=== PATIENT | male | born 1975 | race African-American/Black ===

== ENCOUNTER 2017-07-25 03:01 | Emergency (ER) | payer BC, OTHER ==
[2017-07-25] MEDS ORDERED: ALBUTEROL SO4 2.5/IPRATROPIUM 0.5 INH SOL 3 ML VIAL.NEB. NEB ONE (03:53)
--- NOTE | 2017-07-25 03:53 | PDOC ---
History of Present Illness - General History Source: Patient <Fabrice Farrell - Last Filed: 07/25/17 04:43> - General History Source: Patient Exam Limitations: No Limitations - History of Present Illness Initial Comments: 07/25/17 05:32 The patient is a 41 year old male, with a significant past medical history of Asthma who presents to the emergency department with nonproductive cough for the past 2-3 days. Patient reports worsening cough, wheezing, and shortness of breath. Patient reports associated post-tussive headaches which is unusual for him,he has no headache when he is not coughing. Patient was advised use albuterol pump by PCP however is not sure if it is helping and reports to the ED for further evaluation. Patient denies chest pain, palpitations, diaphoresis, headache or dizziness. Patient denies fever, chills, abdominal pain, nausea, vomit, diarrhea or constipation. Patient denies dysuria, frequency, urgency or hematuria. Patient denies sick contacts or recent travel. <Radha Isaacs - Last Filed: 07/25/17 05:33> - General Stated Complaint: ASTHMA,COUGHIN Time Seen by Provider: 07/25/17 03:31 Past History - Suicide/Smoking/Psychosocial Hx Smoking History: Never smoked <Fabrice Farrell - Last Filed: 07/25/17 04:43> <Radha Isaacs - Last Filed: 07/25/17 05:33> - Past Medical History Allergies/Adverse Reactions: Allergies Allergy/AdvReac Type Severity Reaction Status Date / Time No Known Allergies Allergy Verified 07/25/17 04:03 Home Medications: Ambulatory Orders Albuterol Sulfate Inhaler - [Ventolin HFA Inhaler -] 1 - 2 inh PO Q4H PRN #1 inhaler 07/25/17 Metformin HCl 850 mg PO DAILY 07/25/17 predniSONE [Deltasone -] 40 mg PO DAILY #8 tablet 07/25/17 Respiratory Specific PMHX - Complaint Specific PMHX Angina: No Bronchitis: No Pneumonia: No Pulmonary Embolus: No TB (Tuberculosis): No <Fabrice Farrell - Last Filed: 07/25/17 04:43> Review of Systems - Review of Systems Able to Perform ROS?: Yes Comments:: 07/25/17 05:32 CONSTITUTIONAL: No reported: Fever, Chills, Diaphoresis, Generalized Weakness, Malaise, Loss of Appetite HEENT: No reported: Rhinorrhea, Nasal Congestion, Throat Pain, Throat Swelling, Difficulty Swallowing, Mouth Swelling, Ear Pain, Eye Pain, Visual Changes CARDIOVASCULAR: No reported: Chest Pain, Syncope, Palpitations, Irregular Heart Rate, Lightheadedness, Peripheral Edema RESPIRATORY: reported: Cough, Shortness of Breath No reported:, SOB with Exertion, Orthopnea, Wheezing, Stridor, Hemoptysis GASTROINTESTINAL: No reported: Abdominal pain, Abdominal Distension, Nausea, Vomiting, Diarrhea, Constipation, Melena, Hematochezia GENITOURINARY: No reported: Dysuria, Frequency, Urgency, Hesitancy, Flank Pain, Genital Pain MUSCULOSKELETAL: No reported: Myalgia, Arthralgia, Joint Swelling, Back pain, Neck Pain SKIN: No reported: Rash, Itching, Pallor HEMATOLOGIC/IMMUNOLOGIC: No reported: Easy Bleeding, Easy Bruising, Lymphadenopathy, Frequent infections ENDOCRINE: No reported: Unexplained Weight Gain, Unexplained Weight Loss, Heat Intolerance , Cold Intolerance NEUROLOGIC: No reported: Headache, Focal Weakness, Paresthesias, Vertigo, Lightheadedness, Unsteady Gait, Seizure, Mental Status Changes, Incontinence PSYCHIATRIC: No reported: Anxiety, Depression <Radha Isaacs - Last Filed: 07/25/17 05:33> *Physical Exam - Vital Signs Last Vital Signs Temp Pulse Resp BP Pulse Ox 98.1 F 88 18 119/79 97 07/25/17 03:20 07/25/17 03:20 07/25/17 03:20 07/25/17 03:20 07/25/17 03:20 - Physical Exam Comments: 07/25/17 05:32 GENERAL: The patient is awake, alert, and fully oriented, Nontoxic - in no acute distress. HEAD: Normocephalic, atraumatic. EYES: extraocular movements intact, sclera anicteric, conjunctiva clear. ENT: Normal voice, Moist mucous membranes. NECK: Normal range of motion, No JVD LUNGS: moderate wheezing bilaterally, good air movement, no respiratory distress , speaking in complete sentences HEART: Regular rate and rhythm, normal S1 and S2 without murmur, rub or gallop. ABDOMEN: Soft, nontender, . No guarding, no rebound. No masses. No CVA tenderness EXTREMITIES: Normal range of motion, no edema negative homans sign b/l, no calf tenderness. NEUROLOGICAL: No facial asymmetry, Normal speech, normal gait. PSYCH: Normal mood, normal affect. SKIN: Warm, Dry, normal turgor. <Radha Isaacs - Last Filed: 07/25/17 05:33> ED Treatment Course - Medications Given in the ED: ED Medications Discontinued Medications Generic Name Dose Route Start Last Admin Trade Name Freq PRN Reason Stop Dose Admin Albuterol/Ipratropium 1 amp 07/25/17 03:53 07/25/17 04:13 Duoneb - NEB 07/25/17 03:54 1 amp ONCE ONE Administration Prednisone 60 mg 07/25/17 04:43 07/25/17 04:58 Deltasone - PO 07/25/17 04:44 60 mg ONCE ONE Administration <Radha Isaacs - Last Filed: 07/25/17 05:33> Medical Decision Making - Medical Decision Making 07/25/17 03:53 41-year-old gentleman history of asthma presenting with 3-4 days of nonproductive cough without associated fever, chills, chest pain, dyspnea exertion - patient was given albuterol inhaler by a "specialist, however the patient states it is not significantly improved his symptoms, however he states he is not sure if he is using it appropriately. On exam the patient is well-appearing, in no acute distress, speaking complete sentences, she does have wheezing bilaterally with good air movement. Suspect asthma exacerbation secondary to seasonal ALLERGIES Will give the patient albuterol nebulizers will reassess A portion of this note was documented by scribe services under my direction. I have reviewed the details of the note, within reason, and agree with the documentation with the following case summary and management plan written by me <Fabrice Farrell - Last Filed: 07/25/17 04:43> *DC/Admit/Observation/Transfer - Discharge Dispostion Decision to Admit order: No <Fabrice Farrell - Last Filed: 07/25/17 04:43> - Attestations Scribe Attestion: 07/25/17 05:33 Documentation prepared by Radha Isaacs, acting as medical services assistant for Fabrice Farrell MD <Radha Isaacs - Last Filed: 07/25/17 05:33> Diagnosis at time of Disposition: Asthma exacerbation Qualifiers: Asthma severity: mild Asthma persistence: intermittent Qualified Code(s): J45.21 - Mild intermittent asthma with (acute) exacerbation - Discharge Dispostion Disposition: HOME Condition at time of disposition: Improved - Prescriptions Prescriptions: Albuterol Sulfate Inhaler - [Ventolin HFA Inhaler -] 1 - 2 inh PO Q4H PRN #1 inhaler PRN Reason: Shortness Of Breath predniSONE [Deltasone -] 40 mg PO DAILY #8 tablet - Referrals Referrals: ON STAFF,NOT [Primary Care Provider] - - Patient Instructions Printed Discharge Instructions: DI for Asthma -- Adult Additional Instructions: Return to the emergency department immediately with ANY new, persistent or worsening symptoms incuding worsening breathing, shortness of breath, chest pain or other concerns. Take the prednisone daily until he finished prescription. Use the albuterol as needed up to every 4 hours for cough or wheezing. You MUST call and follow up with your doctor in 4 days for further evaluation of your symptoms. Results were discussed with you. Please make sure your doctor reviews the results of your emergency evaluation.
[2017-07-25 04:03] VITALS: BP 119/79; PULSE 88; TEMP 98.1; BMI 27.8
[2017-07-25] MEDS ORDERED: predniSONE 20 MG TABLET (UD) PO ONE (04:43)
[2017-07-25] MEDS ORDERED: predniSONE 20 MG TABLET (UD) ONE (04:55)
== END 2017-07-25 04:57 | disposition home or self-care (01) ==
LOC: JER 03:01
PROC: 3E0F7GC Introduction of Other Therapeutic Substance into Respiratory Tract, Via Natural or Artificial Opening (ICD-10-PCS; principal; 2017-07-25)
DX: J45.21 Mild intermittent asthma with (acute) exacerbation (principal)
CPT/HCPCS: 94640; 99281-25; J7620

== ENCOUNTER 2018-05-26 12:08 | Emergency (ER) | payer BC ==
[2018-05-26 12:41] VITALS: BP 138/77; PULSE 92; TEMP 98.5; BMI 26.4
--- NOTE | 2018-05-26 13:03 | PDOC ---
History of Present Illness - General Chief Complaint: Sore Throat Stated Complaint: SORE THROAT Time Seen by Provider: 05/26/18 12:51 History Source: Patient Exam Limitations: Clinical Condition - History of Present Illness Initial Comments: 05/26/18 13:00 Patient with history of diabetes present with complaint of 2 day history of sore throat, fever and chills. Patient reported he felt he had a fever but never checked his temperature. Report pain with swallow. Denies any other symptoms Timing/Duration: other (2 days) Past History - Past Medical History Allergies/Adverse Reactions: Allergies Allergy/AdvReac Type Severity Reaction Status Date / Time No Known Allergies Allergy Verified 05/26/18 12:30 Home Medications: Ambulatory Orders Albuterol Sulfate Inhaler - [Ventolin HFA Inhaler -] 1 - 2 inh PO Q4H PRN #1 inhaler 07/25/17 metFORMIN HCL [Metformin HCl] 850 mg PO DAILY 07/25/17 Amox-Tr/K Cl [Augmentin - 875Mg Tablet] 1 tab PO BID #14 tablet 05/26/18 COPD: No Diabetes: Yes - Surgical History Appendectomy: Yes - Suicide/Smoking/Psychosocial Hx Smoking History: Never smoked Have you smoked in the past 12 months: No Hx Alcohol Use: No Drug/Substance Use Hx: No Review of Systems - Review of Systems Able to Perform ROS?: Yes Is the patient limited [place] proficient: No Constitutional: Yes: Chills, Fever (tactile) HEENTM: Yes: Symptoms Reported, See HPI, Throat Pain. No: Eye Pain, Blurred Vision, Tearing, Recent change in vision, Double Vision, Cataracts, Ear Pain, Ocular Prothesis, Ear Discharge, Nose Pain, Nose Congestion, Tinnitus, Nose Bleeding, Hearing Loss, Throat Swelling, Mouth Pain, Dental Problems, Difficulty Swallowing, Mouth Swelling, Other Respiratory: No: Symptoms reported, See HPI, Cough, Orthopnea, Shortness of Breath, SOB with Exertion, SOB at Rest, Stridor, Wheezing, Productive cough, Hemoptysis, Other Cardiac (ROS): No: Symptoms Reported, See HPI, Chest Pain, Edema, Irregular Heart Rate, Lightheadedness, Palpitations, Syncope, Chest Tightness, Other ABD/GI: No: Nausea, Vomiting All Other Systems: Reviewed and Negative *Physical Exam - Vital Signs Last Vital Signs Temp Pulse Resp BP Pulse Ox 98.5 F 92 H 16 138/77 99 05/26/18 12:31 05/26/18 12:31 05/26/18 12:31 05/26/18 12:31 05/26/18 12:31 - Physical Exam Comments: 05/26/18 13:01 GENERAL: Well developed, well nourished. Awake and alert. No acute distress. HEENT: Moderate pharyngeal erythema. No pharyngeal exudates .Normocephalic, atraumatic. PERRLA, EOMI. No conjunctival pallor. Sclera are non-icteric. Moist mucous membranes. NECK: Supple. Full ROM. CARDIOVASCULAR: Regular rate and rhythm. No murmurs, rubs, or gallops. Distal pulses are 2+ and symmetric. PULMONARY: No evidence of respiratory distress. Lungs clear to auscultation bilaterally. No wheezing, rales or rhonchi. ABDOMINAL: Soft. Non-tender. Non-distended. No rebound or guarding. No organomegaly. Normoactive bowel sounds. MUSCULOSKELETAL Normal range of motion at all joints. SKIN: Warm and dry. Normal capillary refill. No rashes. No jaundice. NEUROLOGICAL: Alert, awake, appropriate. Gait is normal without ataxia. PSYCHIATRIC: Cooperative. Good eye contact. Appropriate mood General Appearance: Yes: Nourished, Appropriately Dressed. No: Apparent Distress Moderate Sedation - Procedure Monitoring Vital Signs: Procedure Monitoring Vital Signs Temperature 98.5 F 05/26/18 12:31 Pulse Rate 92 H 05/26/18 12:31 Respiratory Rate 16 05/26/18 12:31 Blood Pressure 138/77 05/26/18 12:31 O2 Sat by Pulse Oximetry (%) 99 05/26/18 12:31 Medical Decision Making - Medical Decision Making 05/26/18 13:02 Patient with significant past medical history present with complaint of 2 day history of sore throat with tactile fevers and chills or Exam significant for moderate pharyngeal erythema without exudates otherwise normal exam. Patient afebrile now. Rapid strep and rapid flu tests ordered. Treat based on lab results. 05/26/18 13:57 Rapid strep positive. Rapid flu negative. Patient is stable for outpatient management for strep pharyngitis with Augmentin for week and PCP follow-up as needed. *DC/Admit/Observation/Transfer Diagnosis at time of Disposition: Strep pharyngitis - Discharge Dispostion Disposition: HOME Condition at time of disposition: Stable Decision to Admit order: No - Prescriptions Prescriptions: Amox-Tr/K Cl [Augmentin - 875Mg Tablet] 1 tab PO BID #14 tablet - Referrals Referrals: Josh Cummins MD [Staff Physician] - - Patient Instructions Printed Discharge Instructions: Strep Throat Additional Instructions: Strep test was positive. Flu test was negative. Take prescribed antibiotics and finish it. Increase fluid intake. take motrin as needed for pain. Follow-up with PCP as needed - Post Discharge Activity Forms/Work/School Notes: Back to Work
[2018-05-26] MEDS ORDERED: DEXAMETHASONE LIQUID 0.5 MG/5 ML 240 ML BULK BOTTLE PO ONE (14:00)
[2018-05-26] MEDS ORDERED: DEXAMETHASONE SOD PHOSPHATE 10 MG/1 ML VIAL ONE (14:02)
== END 2018-05-26 14:07 | disposition home or self-care (01) ==
LOC: JER 12:08 → JERFT 12:08
DX: J02.0 Streptococcal pharyngitis (principal); B95.0 Streptococcus, group A, as the cause of diseases classified elsewhere
CPT/HCPCS: 87804; 87880; 99281-25